=== PATIENT | female | born 1970 | race Caucasian/White ===

== ENCOUNTER → 2018-08-18 | Outpatient (CLI) | payer OTHER ==
[~2018-08-18] MED LIST: FISH OIL 1,0001 EAC1 PO; METO100ER PO; Multiple Vitam1 EACH PO; PROBIOTIC1 EAC1 PO; SERT25 PO
[2018-08-18 17:59] LABS: Influenza A Positive (NEGATIVE); Influenza B Negative (NEGATIVE)
== END | disposition home or self-care (01) ==
LOC: LAB 16:29 → LAB SHORT 16:29
PROVIDERS: Family Medicine
DX: R05 Cough (principal)
CPT/HCPCS: 87804

== ENCOUNTER 2023-05-18 07:48 | Day surgery (SDC) | payer OTHER ==
[~2023-05-18] VITALS: Ht 170.2 cm; Wt 84.9 kg
[2023-05-18] MEDS ORDERED: AMLODIPINE-OLM1 EACH (08:14)
[2023-05-18] MEDS ORDERED: COQ-10100 MG (08:15)
[2023-05-18] MEDS ORDERED: MAGCIT300 (08:15)
--- NOTE | 2023-05-18 08:53 | NUR ---
05/18/23 0853 Elodia Carmona CALL LIGHT WITHIN REACH. FAMILY AT BEDSIDE
[2023-05-18 10:28] VITALS: BP 128/77
== END 2023-05-18 10:15 | disposition home or self-care (01) ==
LOC: ORSCSDS 07:48
PROVIDERS: Surgery
PROC: 0DBH8ZX Excision of Cecum, Via Natural or Artificial Opening Endoscopic, Diagnostic (ICD-10-PCS; principal; 2023-05-18 09:15)
DX: Z12.11 Encounter for screening for malignant neoplasm of colon (principal); Z86.010 Personal history of colon polyps; D12.0 Benign neoplasm of cecum; E11.9 Type 2 diabetes mellitus without complications; I10 Essential (primary) hypertension; E78.5 Hyperlipidemia, unspecified; Z79.82 Long term (current) use of aspirin; Z79.84 Long term (current) use of oral hypoglycemic drugs; Z79.899 Other long term (current) drug therapy
CPT/HCPCS: 82947; 88305; J2704; J7120

== ENCOUNTER 2024-08-03 06:34 | Day surgery (SDC) | payer OTHER ==
[~2024-08-03] VITALS: Ht 170.2 cm; Wt 87.1 kg
[~2024-08-03 06:34] MED LIST changes: +AMLODIPINE-OLM1 EACH; +COQ-10100 MG; +MAGCIT300
[2024-08-03] MEDS ORDERED: MEDR5 (06:56)
[2024-08-03] MEDS ORDERED: VIVELLE-DOT1 EA30 (06:58)
[2024-08-03] MEDS ORDERED: Lactated Ringer's 1,000 ML IV ONE ×2 (07:35→08:02)
[2024-08-03] MEDS ORDERED: propofoL 50 ML IV ONE (07:35)
[2024-08-03 08:42] VITALS: BP 129/76
== END 2024-08-03 08:45 | disposition home or self-care (01) ==
LOC: ORSCSDS 06:34
PROVIDERS: Surgery
PROC: 0DJ08ZZ Inspection of Upper Intestinal Tract, Via Natural or Artificial Opening Endoscopic (ICD-10-PCS; principal; 2024-08-03 08:00)
DX: K21.9 Gastro-esophageal reflux disease without esophagitis (principal); E11.9 Type 2 diabetes mellitus without complications; I10 Essential (primary) hypertension; E78.5 Hyperlipidemia, unspecified; Z79.82 Long term (current) use of aspirin; Z79.899 Other long term (current) drug therapy
CPT/HCPCS: 82947; J2704; J7120